=== PATIENT | male | born 1975 | race African-American/Black ===

== ENCOUNTER 2017-09-22 19:49 | Emergency (ER) | payer OTHER ==
[2017-09-22 19:58] VITALS: BP 118/58; PULSE 68; RESP 16; TEMP 97.7; O2SAT 100
--- NOTE | 2017-09-22 20:18 | PD ---
HPI Chief Complaint: Exposure to Blood/Body Fluids Time Seen by Provider: 20:17 Travel History International Travel<30 days: No Contact w/Intl Traveler<30days: No Traveled to known affect area: No History of Present Illness HPI 42-year-old male with no significant medical history presents emergency department for evaluation following a possible exposure. Patient is a registered nurse and states that normal saline from an IV line, possibly contaminated with blood splashed into his eye. Patient irrigated his eyes. He denies any immunocompromise state. Patient is uncertain of his tetanus status. He states he has received his hepatitis B series but is uncertain of his titer count. Patient denies any visual changes. He has no pain. He has no acute symptoms at this time. [facility] Past Medical History Asthma: Yes Respiratory: Yes ?: Not Past Surgical History Surgical History: No Previous Surgery Social History Alcohol Use: No Tobacco Use: No Substance Use: No Allergies-Medications (Allergen,Severity, Reaction): Coded Allergies: shellfish derived (Verified Allergy, Severe, Shortness of Breath, 09/22/17) Penicillins (Verified Allergy, Unknown, 09/22/17) Review of Systems Except as stated in HPI: all other systems reviewed are Neg Physical Exam Narrative GENERAL: Well-nourished, well-developed male patient in no acute distress SKIN: Focused skin assessment warm/dry. HEAD: Normocephalic. EYES: No scleral icterus. No injection or drainage. NECK: Supple, trachea midline. No JVD or lymphadenopathy. CARDIOVASCULAR: Regular rate and rhythm without murmurs, gallops, or rubs. RESPIRATORY: Breath sounds equal bilaterally. No accessory muscle use. GASTROINTESTINAL: Abdomen soft, non-tender, nondistended. MUSCULOSKELETAL: No cyanosis, or edema. BACK: Nontender without obvious deformity. No CVA tenderness. Data Data Last Documented VS Vital Signs Date Time Temp Pulse Resp B/P (MAP) Pulse Ox O2 Delivery O2 Flow Rate FiO2 09/22/17 19:58 97.7 68 16 118/58 (78) 100 Orders Orders Tetanus/Diphtheria Tox Adult (Tetanus/Di (09/22/17 20:30) MDM Medical Decision Making Medical Screen Exam Complete: Yes Emergency Medical Condition: Yes Medical Record Reviewed: Yes Differential Diagnosis Possible exposure versus exposure high risk versus low versus normal examination Narrative Course 42-year-old male presents emergency department for evaluation of a possible exposure to contaminated normal saline with blood from an IV line. Patient is updated on his tetanus. PEP is not recommended. Source patient testing is delayed due to failure of following proper procedure on the patient's unit. An incident report did not accompany the patient down to our emergency department. He was sent back up to retrieve the incident report so post exposure prophylaxis can be initiated. Diagnosis Primary Impression: Employee exposure to body fluids Referrals: Employ Med 2 days Patient Instructions: Body Substance Exposure (ED), General Instructions Additional Instructions: This was a low risk exposure. Post exposure prophylaxis is not recommended You were updated on your tetanus vaccination Follow-up with employee med in the next 1-3 days Return immediately with acute worsening of symptoms Med/Other Pt SpecificInfo: No Change to Meds Disposition: 01 DISCHARGE HOME Condition: Stable Aster Duffy September 22, 2017 20:18
[2017-09-22] MEDS ORDERED: TETANUS/DIPHTHERIA TOXOID ADULT 0.5 ML VIAL IM ONE (20:30)
== END 2017-09-22 22:31 | disposition home or self-care (01) ==
LOC: NEPE 19:49
DX: Z77.21 Contact with and (suspected) exposure to potentially hazardous body fluids (principal); Z23 Encounter for immunization
CPT/HCPCS: 90471; 90714